=== PATIENT | female | born 1990 | race Two or more races ===

== ENCOUNTER 2016-10-29 10:18 | Emergency (ER) | payer OTHER ==
[~2016-10-29] VITALS: Ht 170.2 cm; Wt 117.9 kg
[2016-10-29 10:27] VITALS: BP 129/76
[2016-10-29] MEDS ORDERED: CEPH500C PO (11:27)
--- NOTE | 2016-10-29 11:27 | PHYS DOC ---
Past Medical History Past Medical History: No Pertinent History Past Surgical History: No Surgical History Alcohol Use: None Drug Use: None Adult General Chief Complaint Chief Complaint: ABSCESS HPI HPI Patient is a 26 year old female who is currently 37 weeks who presents today with a skin infection on the right thumb for 2 weeks. Patient states the area has drained small amount of bloody drainage. Patient denies any fever. She follows up with her OB on care. Review of Systems Review of Systems Constitutional: Denies fever or chills [] Eyes: Denies change in visual acuity, redness, or eye pain [] HENT: Denies nasal congestion or sore throat [] GI: Denies abdominal pain, nausea, vomiting, bloody stools or diarrhea [] : Denies dysuria or hematuria [] Musculoskeletal: Denies back pain or joint pain [] Integument: Right thumb infection Neurologic: Denies headache, focal weakness or sensory changes [] Endocrine: Denies polyuria or polydipsia [] Allergies Allergies Allergies Coded Allergies Type Severity Reaction Last Updated Verified No Known Drug Allergies 12/21/13 No Physical Exam Physical Exam Constitutional: Well developed, well nourished, no acute distress, non-toxic appearance. [] HENT: Normocephalic, atraumatic, bilateral external ears normal, oropharynx moist, no oral exudates, nose normal. [] Eyes: PERRLA, EOMI, conjunctiva normal, no discharge. [] Abdomen: Gravid abdomen Bowel sounds normal, soft, no tenderness, no masses, no pulsatile masses. [] Skin: Right mid lateral thumb with an area of induration approximately 0.5 x 0.5 cm, the area is firm. No fluctuance to the area. The area is red. Neurovascular exam on the pump is normal. +2 right radial pulse. Back: No tenderness, no CVA tenderness. [] Extremities: No tenderness, no cyanosis, no clubbing, ROM intact, no edema. [] Neurologic: Alert and oriented X 3, normal motor function, normal sensory function, no focal deficits noted. [] Psychologic: Affect normal, judgement normal, mood normal. [] Current Patient Data Vital Signs Vital Signs Date Time Temp Pulse Resp B/P Pulse Ox O2 Delivery O2 Flow Rate FiO2 10/29/16 10:27 95.5 71 18 98 Room Air 95.5 EKG EKG [] Radiology/Procedures Radiology/Procedures [] Course & Med Decision Making Course & Med Decision Making Pertinent Labs and Imaging studies reviewed. (See chart for details) Patient has a lesion on the right thumb with slight infection. She is 37 weeks . Discharged with cephalexin. Instructed to follow-up with the automobile washer steam in 2 weeks if the lesion does not clear with antibiotics. It may need to be biopsied. Dragon Disclaimer Dragon Disclaimer This electronic medical record was generated, in whole or in part, using a voice recognition dictation system. Departure Departure Impression: Primary Impression: Skin lesion Additional Impression: Skin infection Disposition: HOME, SELF-CARE Condition: STABLE Referrals: NO PCP (PCP) COOKIE KHAN MD follow up with her in two weeks Patient Instructions: Skin Infections Additional Instructions: You have a lesion on the right thumb that appears infected. We will put you on antibiotics for 10 days. Ensure you complete them. Follow-up with your [employer] to confirm if you have had a tetanus vaccine or not. If this lesion does not go away in 2 weeks. Follow-up with the provided automobile washer steam. They may need to do a biopsy to find its cause. Scripts Cephalexin 500 Mg Capsule1 Cap PO QID #40 CAP Prov:ELADIA SCHMIDT APRN 10/29/16 Problem Qualifiers ELADIA SCHMIDT APRN October 29, 2016 11:27
== END 2016-10-29 12:07 | disposition home or self-care (01) ==
LOC: ER 10:18
DX: O26.893 Other specified pregnancy related conditions, third trimester (principal); L08.89 Other specified local infections of the skin and subcutaneous tissue; L98.8 Other specified disorders of the skin and subcutaneous tissue; Z3A.37 37 weeks gestation of pregnancy
CPT/HCPCS: 99283

== ENCOUNTER → 2018-01-14 | Outpatient (CLI) | payer OTHER | END | disposition home or self-care (01) | LOC: KCIC US 12:57 | DX: R92.8 Other abnormal and inconclusive findings on diagnostic imaging of breast (principal) | CPT/HCPCS: 76641 ==

== ENCOUNTER 2018-02-24 17:34 | Emergency (ER) | payer OTHER ==
[~2018-02-24] VITALS: Ht 167.6 cm; Wt 117.9 kg
[~2018-02-24 17:34] MED LIST: CEPH500C PO
[2018-02-24 19:09] VITALS: BP 134/73
[2018-02-24] MEDS ORDERED: IBUP-1060 PO (19:32)
[2018-02-24] MEDS ORDERED: HYDR-971 PO (19:32)
[2018-02-24] MEDS ORDERED: DIAZ5TAB PO (19:32)
[2018-02-24] MEDS: KETOROLAC 60 MG/2 ML INJ. IM ONE (19:38)
--- NOTE | 2018-02-25 03:51 | PHYS DOC ---
Past Medical History Past Medical History: No Pertinent History Past Surgical History: No Surgical History Alcohol Use: None Drug Use: None Adult General Chief Complaint Chief Complaint: SHOULDER INJURY [facility] HPI Patient is a 27 year old female who presents with right side neck pain. Patient began having symptoms 2 days earlier. She states she was at work when she noticed a tightness over the right side of her chest. The symptoms worsen over the last 2 days causing her some difficulty with rotation of the head. Pain is along the right side of her neck and radiates down to the top of the right shoulder and also to the posterior aspect of the base of the neck. Pain is worse with movement. She has not had a fever or chills. No headaches. No rash. She describes the pain feels like a muscle spasm. She did not have trauma. She has not had this problem in the past. Review of Systems Review of Systems Constitutional: Denies fever or chills Eyes: Denies change in visual acuity HENT: Denies nasal congestion or sore throat Respiratory: Denies cough or shortness of breath Cardiovascular: No additional information not addressed in HPI Integument: Denies rash or skin lesions Neurologic: Denies headache, focal weakness All other systems were reviewed and found to be within normal limits, except as documented in this note. Current Medications Current Medications Current Medications Medications (Trade) Dose Ordered Sig/Hakeem Start Time Stop Time Status Last Admin Dose Admin Ketorolac Tromethamine (Toradol Im) 60 mg 1X ONCE 02/24/18 19:30 02/24/18 19:31 DC 02/24/18 19:38 60 MG Allergies Allergies Allergies Coded Allergies Type Severity Reaction Last Updated Verified No Known Drug Allergies 12/21/13 No Physical Exam Physical Exam Constitutional: Well developed, well nourished, no acute distress, non-toxic appearance HENT: Normocephalic, atraumatic, bilateral external ears normal, oropharynx moist Eyes: PERRLA, EOMI, conjunctiva normal Neck: The mid range of motion due to pain. Patient does however have full range of motion. There is palpable muscle spasm along the right sternocleidomastoid muscle as well as the right trapezius muscle. There is no midline C-spine tenderness Cardiovascular:Heart rate regular rhythm, no murmur Skin: Warm, dry, no erythema, no rash Extremities: No tenderness Neurologic: Alert and oriented X 3 Psychologic: Affect normal Current Patient Data Vital Signs Vital Signs Date Time Temp Pulse Resp B/P (MAP) Pulse Ox O2 Delivery O2 Flow Rate FiO2 02/24/18 19:09 98.2 82 18 134/73 (93) 97 Room Air 98.2 EKG EKG [] Radiology/Procedures Radiology/Procedures [] Course & Med Decision Making Course & Med Decision Making Pertinent Labs and Imaging studies reviewed. (See chart for details) Patient was evaluated in the emergency department in the fast track area. The patient had findings on her physical exam consistent with torticollis. She did not have any fever, rash, headaches, chills. Her last menstrual period was 2 weeks earlier. In the emergency department, she was given a dose of intramuscular Toradol. She is discharged home with medications for symptom relief and reassurance. She is advised to come back to the ER for any new or worsening symptoms or follow up with her primary care physician if available. Proper use of opiate medications are described and the patient's questions were all answered prior to discharge home. Dragon Disclaimer Dragon Disclaimer This electronic medical record was generated, in whole or in part, using a voice recognition dictation system. Departure Departure Impression: Primary Impression: Torticollis, acute Disposition: 01 HOME, SELF-CARE Condition: GOOD Patient Instructions: Torticollis, Acute Scripts Hydrocodone/Apap 5-325 (NORCO 5-325 TABLET) 1 Each Tablet 1-2 EACH PO PRN Q6HRS PRN for severe pain, #10 as needed for pain Prov: GALO BOUDREAUX DO 02/24/18 Ibuprofen (IBUPROFEN) 800 Mg Tablet 800 MG PO PRN TID PRN for PAIN, #20 TAB take with food or milk to avoid upsetting stomach Prov: GALO BOUDREAUX DO 02/24/18 Diazepam (VALIUM) 5 Mg Tablet 5 MG PO BID for muscle spasm, #15 TAB Prov: GALO BOUDREAUX DO 02/24/18 GALO BOUDREAUX DO Feb 25, 2018 03:51
== END 2018-02-24 19:43 | disposition home or self-care (01) ==
LOC: ER 17:34
DX: M43.6 Torticollis (principal); R07.89 Other chest pain; M25.511 Pain in right shoulder
CPT/HCPCS: 96372; 99283; J1885

== ENCOUNTER 2019-03-27 15:55 | Emergency (ER) | payer OTHER ==
[~2019-03-27] VITALS: Ht 170.2 cm; Wt 104.3 kg
[~2019-03-27 15:55] MED LIST changes: +DIAZ5TAB PO; +HYDR-3164 PO; +IBUP-1060 PO
[2019-03-27] MEDS ORDERED: ONDANSETRON PF 4 MG/2 ML VIAL. IV ONE (16:30)
[2019-03-27] MEDS ORDERED: MECLIZINE HCL 12.5 MG TABLET. PO ONE (16:30)
[2019-03-27] MEDS ORDERED: IV NORMAL SALINE 1000ML BAG 1,000 ML IV ONE (16:30)
--- NOTE | 2019-03-27 16:33 | PHYS DOC ---
Past Medical History Past Medical History: No Pertinent History Past Surgical History: No Surgical History Alcohol Use: None Drug Use: None Adult General Chief Complaint Chief Complaint: DIZZY/LIGHT HEADED HPI HPI Patient is a 28 year old female with no significant medical history who presents to the ED today complaining of intermittent episodes of dizziness and lightheadedness that has been going on for one week. Patient states symptoms are worse when she changes position from sitting to standing. Patient is also complaining of episodes of nausea with no vomiting when these symptoms are going on. Denies any chest pain or shortness of breath. Review of Systems Review of Systems Constitutional: Denies fever or chills [] Eyes: Denies change in visual acuity, redness, or eye pain [] HENT: Denies nasal congestion or sore throat [] Respiratory: Denies cough or shortness of breath [] Cardiovascular: No additional information not addressed in HPI [] GI: Reports nausea. Denies abdominal pain, vomiting, bloody stools or diarrhea [] : Denies dysuria or hematuria [] Musculoskeletal: Denies back pain or joint pain [] Integument: Denies rash or skin lesions [] Neurologic: Reports dizziness. Denies headache, focal weakness or sensory changes [] Endocrine: Denies polyuria or polydipsia [] All other systems were reviewed and found to be within normal limits, except as documented in this note. Current Medications Current Medications Current Medications Medications (Trade) Dose Ordered Sig/Hakeem Start Time Stop Time Status Last Admin Dose Admin Meclizine HCl (Antivert) 25 mg 1X ONCE 03/27/19 16:30 03/27/19 16:31 DC 03/27/19 16:58 25 MG Ondansetron HCl (Zofran) 4 mg 1X ONCE 03/27/19 16:30 03/27/19 16:31 DC 03/27/19 16:58 4 MG Sodium Chloride 1,000 ml @ 1,000 mls/hr 1X ONCE 03/27/19 16:30 03/27/19 17:29 DC 03/27/19 16:30 1,000 MLS/HR Allergies Allergies Allergies Coded Allergies Type Severity Reaction Last Updated Verified No Known Drug Allergies 12/21/13 No Physical Exam Physical Exam Constitutional: Well developed, well nourished, no acute distress, non-toxic appearance. [] HENT: Normocephalic, atraumatic, bilateral external ears normal, oropharynx moist, no oral exudates, nose normal. [] Eyes: PERRLA, EOMI, conjunctiva normal, no discharge. [] Neck: Normal range of motion, no tenderness, supple, no stridor. [] Cardiovascular:Heart rate regular rhythm, no murmur [] Lungs & Thorax: Bilateral breath sounds clear to auscultation [] Abdomen: Bowel sounds normal, soft, no tenderness, no masses, no pulsatile masses. [] Skin: Warm, dry, no erythema, no rash. [] Back: No tenderness, no CVA tenderness. [] Extremities: No tenderness, no cyanosis, no clubbing, ROM intact, no edema. [] Neurologic: Alert and oriented X 3, normal motor function, normal sensory function, no focal deficits noted. Cranial nerves II through XII intact Psychologic: Affect normal, judgement normal, mood normal. [] Current Patient Data Vital Signs Vital Signs Date Time Temp Pulse Resp B/P (MAP) Pulse Ox O2 Delivery O2 Flow Rate FiO2 03/27/19 17:49 74 19 98 03/27/19 16:17 98.4 152/72 (98) Room Air 98.4 Lab Values Laboratory Tests Test 03/27/19 16:05 03/27/19 16:17 03/27/19 17:04 Urine Color Yellow Urine Clarity Clear Urine pH 6.5 Urine Specific [place] 1.020 Urine Protein Negative mg/dL (NEG-TRACE) Urine Glucose (UA) Negative mg/dL (NEG) Urine Ketones (Stick) Negative mg/dL (NEG) Urine Blood Negative (NEG) Urine Nitrite Negative (NEG) Urine Bilirubin Negative (NEG) Urine Urobilinogen Dipstick 1.0 mg/dL (0.2 mg/dL) Urine Leukocyte Esterase Small (NEG) Urine RBC 0 /HPF (0-2) Urine WBC 1-4 /HPF (0-4) Urine Squamous Epithelial Cells Occ /LPF Urine Bacteria Few /HPF (0-FEW) Urine Mucus Mod /LPF Urine Opiates Screen Neg (NEG) Urine Methadone Screen Neg (NEG) Urine Barbiturates Neg (NEG) Urine Phencyclidine Screen Neg (NEG) Urine Amphetamine/Methamphetamine Neg (NEG) Urine Benzodiazepines Screen Neg (NEG) Urine Cocaine Screen Neg (NEG) Urine Cannabinoids Screen Neg (NEG) Urine Ethyl Alcohol Neg (NEG) POC Urine HCG, Qualitative Hcg negative (Negative) White Blood Count 5.2 x10^3/uL (4.0-11.0) Red Blood Count 3.86 x10^6/uL (3.50-5.40) Hemoglobin 10.5 g/dL (12.0-15.5) L Hematocrit 32.3 % (36.0-47.0) L Mean Corpuscular Volume 84 fL (79-100) Mean Corpuscular Hemoglobin 27 pg (25-35) Mean Corpuscular Hemoglobin Concent 33 g/dL (31-37) Red Cell Distribution Width 16.3 % (11.5-14.5) H Platelet Count 219 x10^3/uL (140-400) Neutrophils (%) (Auto) 53 % (31-73) Lymphocytes (%) (Auto) 40 % (24-48) Monocytes (%) (Auto) 5 % (0-9) Eosinophils (%) (Auto) 2 % (0-3) Basophils (%) (Auto) 0 % (0-3) Neutrophils # (Auto) 2.7 x10^3/uL (1.8-7.7) Lymphocytes # (Auto) 2.1 x10^3/uL (1.0-4.8) Monocytes # (Auto) 0.3 x10^3/uL (0.0-1.1) Eosinophils # (Auto) 0.1 x10^3/uL (0.0-0.7) Basophils # (Auto) 0.0 x10^3/uL (0.0-0.2) Sodium Level 141 mmol/L (136-145) Potassium Level 4.0 mmol/L (3.5-5.1) Chloride Level 107 mmol/L (98-107) Carbon Dioxide Level 27 mmol/L (21-32) Anion Gap 7 (6-14) Blood Urea Nitrogen 10 mg/dL (7-20) Creatinine 0.7 mg/dL (0.6-1.0) Estimated GFR (Cockcroft-Gault) 98.9 BUN/Creatinine Ratio 14 (6-20) Glucose Level 103 mg/dL (70-99) H Calcium Level 8.3 mg/dL (8.5-10.1) L Magnesium Level 1.8 mg/dL (1.8-2.4) Total Bilirubin 0.1 mg/dL (0.2-1.0) L Aspartate Amino Transferase (AST) 11 U/L (15-37) L Alanine Aminotransferase (ALT) 14 U/L (14-59) Alkaline Phosphatase 58 U/L (46-116) Creatine Kinase 57 U/L (26-192) Creatine Kinase MB (Mass) < 0.5 ng/mL (0.0-3.6) Creatine Kinase MB Relative Index % (0-4) Troponin I Quantitative < 0.017 ng/mL (0.000-0.055) PK-Naq-P-Type Natriuretic Peptide 55 pg/mL (0-124) Total Protein 6.6 g/dL (6.4-8.2) Albumin 2.9 g/dL (3.4-5.0) L Albumin/Globulin Ratio 0.8 (1.0-1.7) L Laboratory Tests 03/27/19 17:04 Laboratory Tests 03/27/19 17:04 EKG EKG [address] Lemons sinus rhythm HR 65 no STEMI[] Radiology/Procedures Radiology/Procedures []PROCEDURE: PORTABLE CHEST 1V Single view chest dated 03/27/2019: No comparison available. Clinical Indication: Dizziness for one week. Findings: Single upright portable exam of the chest was performed. Heart size and mediastinal contours are within normal limits given technique. The lungs are clear without evidence of focal consolidation. Vascular interstitium is within normal limits. Impression:: Negative portable chest. Electronically signed by: Andi Pascual MD (03/27/2019 4:51 PM) [facility] DICTATED and SIGNED BY: ANDI PASCUAL MD DATE: 03/27/19 165 PROCEDURE: CT HEAD WO CONTRAST EXAM: Head CT without contrast. HISTORY: Dizziness. TECHNIQUE: Computed tomographic images of the head were obtained without contrast. *One or more of the following individualized dose reduction techniques were utilized for this examination: 1. Automated exposure control. 2. Adjustment of the mA and/or kV according to patient size. 3. Use of iterative reconstruction technique. COMPARISON: None. FINDINGS: There is no acute or subacute extra-axial or intraparenchymal hemorrhage. There is no mass effect or midline shift. There is no hydrocephalus. The fowler-white matter differentiation pattern is intact. There are incidental small bilateral choroid plexus xanthogranulomas. There is a prominent sella. The visualized portions of the orbits and paranasal sinuses and mastoid air cells are unremarkable. IMPRESSION: 1. No acute intracranial finding. Note is made that MRI is more sensitive for acute infarction. 2. Possibly expanded empty or partially empty sella. Electronically signed by: Jewell Larios MD (03/27/2019 4:50 PM) [facility] DICTATED and SIGNED BY: JEWELL LARIOS MD DATE: 03/27/19 165 Course & Med Decision Making Course & Med Decision Making Pertinent Labs and Imaging studies reviewed. (See chart for details) This is a 28-year-old female patient presenting to the ED today complaining of dizziness with lightheadedness intermittently for one week. CBC with normal WBC, hemoglobin 10.5, hematocrit 32.3, CMP with nothing really acute, urine analysis is noted for UTI, CT of the head is negative for any acute findings, EKG, chest x-ray is negative. Patient was given a liter of fluid, meclizine and Zofran. Discharged with meclizine. Provided neurology for follow-up as an outpatient. Bactrim for UTI. Instructed to change positions slowly. Provided return precautions and discharged in stable condition. Dragon Disclaimer Dragon Disclaimer This electronic medical record was generated, in whole or in part, using a voice recognition dictation system. Departure Departure Impression: Primary Impression: Vertigo Additional Impression: UTI (lower urinary tract infection) Disposition: 01 HOME, SELF-CARE Condition: STABLE Referrals: NO PCP (PCP) JOHAN CORDOVA MD follow up in one week Patient Instructions: Urinary Tract Infection, Vertigo, Ioad-fc-Tdks Additional Instructions: You were evaluated in the emergency room for dizziness/lightheadedness. Take Meclizine as needed for dizziness and lightheadedness change positions slowly. Push fluids. Your hemoglobin is low, try and increase your dietary iron intake including foods like red meats, take iron tablets. You also have urinary tract infection, complete your antibiotics. Scripts Sulfamethoxazole/Trimethoprim (BACTRIM DS TABLET) 1 Each Tablet 1 TAB PO BID, #6 TAB Prov: MUTUNGA,ELADIA [employer] 03/27/19 Meclizine Hcl (MECLIZINE HCL) 25 Mg Tablet 1 TAB PO TID, #30 TAB Prov: MUTUNGA,ELADIA [employer] 03/27/19 Problem Qualifiers ELADIA SCHMIDT APRN Mar 27, 2019 16:33
--- NOTE | 2019-03-27 16:53 | RAD ---
EXAM: Head CT without contrast. HISTORY: Dizziness. TECHNIQUE: Computed tomographic images of the head were obtained without contrast. *One or more of the following individualized dose reduction techniques were utilized for this examination: 1. Automated exposure control. 2. Adjustment of the mA and/or kV according to patient size. 3. Use of iterative reconstruction technique. COMPARISON: None. FINDINGS: There is no acute or subacute extra-axial or intraparenchymal hemorrhage. There is no mass effect or midline shift. There is no hydrocephalus. The fowler-white matter differentiation pattern is intact. There are incidental small bilateral choroid plexus xanthogranulomas. There is a prominent sella. The visualized portions of the orbits and paranasal sinuses and mastoid air cells are unremarkable. IMPRESSION: 1. No acute intracranial finding. Note is made that MRI is more sensitive for acute infarction. 2. Possibly expanded empty or partially empty sella. Electronically signed by: Jewell Berger MD (03/27/2019 4:50 PM) [facility]
--- NOTE | 2019-03-27 16:54 | RAD ---
Single view chest dated 03/27/2019: No comparison available. Clinical Indication: Dizziness for one week. Findings: Single upright portable exam of the chest was performed. Heart size and mediastinal contours are within normal limits given technique. The lungs are clear without evidence of focal consolidation. Vascular interstitium is within normal limits. Impression:: Negative portable chest. Electronically signed by: Andi Pascual MD (03/27/2019 4:51 PM) [facility]
[2019-03-27 17:07] LABS: BILIRUBIN,URINE NEGATIVE (NEG); CLARITY,URINE CLEAR; COLOR,URINE YELLOW; NITRITE,URINE NEGATIVE (NEG); PH,URINE 6.5; PROTEIN,URINE NEGATIVE (NEG-TRACE)
[2019-03-27 17:12] LABS: BARBITURATES NEG (NEG); BENZODIAZEPINES NEG (NEG); CANNABINOIDS NEG (NEG); COCAINE NEG (NEG); METHADONE NEG (NEG); OPIATES NEG (NEG); PHENCYCLIDINE NEG (NEG)
[2019-03-27 17:17] LABS: BACTERIA,URINE FEW /HPF (0-FEW); RBC,URINE 0 /HPF (0-2); SQUAMOUS EPITHELIAL CELL,UR OCC /LPF
[2019-03-27 17:18] LABS: AMPHETAMINE/METHAMPHETAMINE NEG (NEG)
[2019-03-27 17:25] LABS: BASO % 0 % (0-3); EOS # 0.1 x10^3/uL (0.0-0.7); EOS % 2 % (0-3); HEMATOCRIT 32.3 % (36.0-47.0); HEMOGLOBIN 10.5 g/dL (12.0-15.5); LYMPH # 2.1 x10^3/uL (1.0-4.8); LYMPH % 40 % (24-48); MEAN CORPUSCULAR HEMOGLOBIN 27 pg (25-35); MEAN CORPUSCULAR HGB CONC 33 g/dL (31-37); MEAN CORPUSCULAR VOLUME 84 fL (79-100); MONO # 0.3 x10^3/uL (0.0-1.1); MONO % 5 % (0-9); NEUT # 2.7 x10^3/uL (1.8-7.7); NEUT % 53 % (31-73); PLATELET COUNT 219 x10^3/uL (140-400); RED BLOOD COUNT 3.86 x10^6/uL (3.50-5.40); RED CELL DISTRIBUTION WIDTH 16.3 % (11.5-14.5); WHITE BLOOD COUNT 5.2 x10^3/uL (4.0-11.0)
[2019-03-27 17:28] LABS: CALCIUM 8.3 mg/dL (8.5-10.1); CREATININE 0.7 mg/dL (0.6-1.0); GFR 98.9
[2019-03-27 17:34] LABS: ALBUMIN 2.9 g/dL (3.4-5.0); ALBUMIN/GLOBULIN RATIO 0.8 (1.0-1.7); MAGNESIUM 1.8 mg/dL (1.8-2.4); TOTAL BILIRUBIN 0.1 mg/dL (0.2-1.0); TOTAL PROTEIN 6.6 g/dL (6.4-8.2)
[2019-03-27 17:44] LABS: CREATINE KINASE 57 U/L (26-192)
[2019-03-27 18:19] VITALS: BP 122/74
[2019-03-27] MEDS ORDERED: MECL25TA3 PO (18:19)
[2019-03-27] MEDS ORDERED: SULF1TAB24 PO (18:19)
--- NOTE | 2019-03-28 10:13 | EKG ---
[facility] [address] [place] [address] Test Date: 2019-03-27 Test Time: 16:10:46 Pat Name: COOPER KAMINSKI Department: Room: Gender: F [employer] Equipment: : 1990 Requested By: ELADIA SCHMIDT Order Number: [id number] Reading MD: Measurements Intervals [place] Rate: 65 P: 34 DC: 146 QRS: 34 QRSD: 104 T: 28 QT: 382 QTc: 402 Interpretive Statements SINUS RHYTHM NORMAL ECG No previous ECG available for comparison
== END 2019-03-27 18:30 | disposition home or self-care (01) ==
LOC: ER 15:55
DX: N39.0 Urinary tract infection, site not specified (principal); R42 Dizziness and giddiness; R11.0 Nausea
CPT/HCPCS: 36415; 70450; 71045; 80053; 80307; 81001; 81025; 82553; 83735; 83880; 84484; 85025; 93005; 96361; 96374; 99285; J2405; J7030; J8597